=== PATIENT | female | born 1990 | race Caucasian/White ===

== ENCOUNTER 2016-05-13 03:03 | Emergency (ER) | payer SELFPAY ==
[~2016-05-13] VITALS: Ht 152.4 cm; Wt 70.5 kg
[~2016-05-13 03:03] MED LIST: BACTDS PO; CEPH-443 PO; IBUP-1542 PO; METO10TA92 PO; NITR-58 PO
[2016-05-13 03:11] VITALS: Ht 152.4 cm; Wt 70.5 kg
== END 2016-05-13 04:17 | disposition left against medical advice (07) ==
LOC: FTE 03:03 → E/R 04:17
DX: Z53.21 Procedure and treatment not carried out due to patient leaving prior to being seen by health care provider (principal)

== ENCOUNTER 2016-10-02 10:30 | Emergency (ER) | payer BC ==
[~2016-10-02] VITALS: Ht 157.5 cm; Wt 64.5 kg
[2016-10-02 10:36] VITALS: Ht 157.5 cm; Wt 64.5 kg
[2016-10-02] MEDS ORDERED: ONDANSETRON (ODT) 4 MG TAB ODT STA (11:52)
[2016-10-02 12:09] LABS: URINE BLOOD (Dip) POC Negative (NEGATIVE)
[2016-10-02 12:38] LABS: ADD UMIC YES; UR ASCORBIC ACID NEGATIVE (NEGATIVE); UR BACTERIA FEW /HPF (NONE SEEN); UR BILIRUBIN (Dip) NEGATIVE (NEGATIVE); UR BLOOD (Dip) NEGATIVE (NEGATIVE); UR CLARITY CLOUDY (CLEAR); UR COLOR AMBER (YELLOW); UR GLUCOSE (Dip) NEGATIVE (NEGATIVE); UR KETONES (Dip) 2+ mg/dL (NEGATIVE); UR LEUKOCYTE ESTERASE (Dip) 3+ Leu/ul (NEGATIVE); UR MUCUS MANY /HPF (NONE SEEN); UR NITRITE (Dip) NEGATIVE (NEGATIVE); UR RBC 6 /HPF (0-5); UR SPECIFIC GRAVITY (Dip) 1.032 (1.003-1.030); UR SQUAMOUS EPITHELIAL CELL MANY /HPF (FEW); UR TOTAL PROTEIN (Dip) 2+ mg/dl (NEGATIVE); UR UROBILINOGEN (Dip) 2+ mg/dL (NEGATIVE); UR WBC CLUMPS FEW /HPF (NONE SEEN)
--- NOTE | 2016-10-02 13:01 | ERD ---
ER Documentation Chief Complaint Date/Time DATE: 10/02/16 TIME: 13:00 Chief Complaint Pt vomiting X 2 days, unable to keep anything down. HPI 26-year-old female previously healthy G 2 P1 Ab1 8 months presenting with nausea and vomiting. Her symptoms have been going on for the past 2-3 days. She has had a few episodes of nonbloody and nonbilious vomiting, but her biggest complaint is just consistent nausea and difficulty eating or drinking secondary to her symptoms. She denies any associated abdominal pain, dysuria, fever, chills, headache, focal weakness or numbness. She suspects she might be as she has missed her period for the past 2 months. She has no vaginal bleeding, dyspareunia, or pelvic pain. ROS All systems reviewed and are negative except as per history of present illness. Medications Home Meds Active Scripts Metoclopramide* (Reglan*) 10 Mg Tablet, 10 MG PO Q6 Y for NAUSEA AND/OR VOMITING , #10 TAB Prov:EZEQUIEL GARCIA MD 10/02/16 Cephalexin* (Keflex*) 500 Mg Capsule, 500 MG PO QID for 7 Days, CAP Prov:ROSARIO BERNAL CERTIFIED ATHLETIC TRAINER 02/18/16 Ibuprofen* (Motrin*) 600 Mg Tab, 600 MG PO Q6H Y for PAIN AND OR ELEVATED TEMP, #30 TAB Prov:ROSARIO BERNAL. CERTIFIED ATHLETIC TRAINER 02/18/16 Nitrofurantoin Monohyd Macrocr* (Macrobid*) 100 Mg Capsr, 100 MG PO BID for 7 Days, CAP Prov:NORTH DAI PA-C 05/31/15 Metoclopramide* (Reglan*) 10 Mg Tablet, 10 MG PO Q6 Y for NAUSEA AND/OR VOMITING , #10 TAB Prov:NORTH DAI PA-C 05/31/15 Ibuprofen* (Motrin*) 600 Mg Tab, 600 MG PO Q6, #20 TAB Prov:NORTH DAI PA-C 11/05/14 Cephalexin* (Keflex*) 500 Mg Capsule, 500 MG PO QID for 7 Days, CAP Prov:NORTH DAI PA-C 11/05/14 Sulfamethoxazole-Trimethoprim* (Bactrim* DS) 800-160 Mg Tab, 1 TAB PO BID for 10 Days, TAB Prov:NORTH DAI PA-C 11/05/14 Reported Medications [None] No Conflict Check 08/01/09 Allergies Allergies: Coded Allergies: No Known Allergies (Verified Allergy, Mild, 10/02/16) Uncoded Allergies: NONE (Allergy, Mild, 08/01/09) PMhx/Soc Medical and Surgical Hx: pt denies Medical Hx, pt denies Surgical Hx History of Surgery: No Anesthesia Reaction: No Hx Neurological Disorder: No Hx Respiratory Disorders: Yes (Asthma) Hx Cardiac Disorders: No Hx Psychiatric Problems: No Hx Miscellaneous Medical Probl: No Hx Alcohol Use: No Hx Substance Use: No Hx Tobacco Use: No Smoking Status: Never smoker FmHx Family History: No diabetes Physical Exam Vitals Vital Signs Date Time Temp Pulse Resp B/P Pulse Ox O2 Delivery O2 Flow Rate FiO2 10/02/16 10:36 98.5 80 16 126/71 98 Physical Exam Const: Well-appearing, no apparent distress, nontoxic Head: Atraumatic Eyes: Normal Conjunctiva ENT: Normal External Ears, Nose and Mouth. Neck: Full range of motion..~ No meningismus. Resp: Clear to auscultation bilaterally Cardio: Regular rate and rhythm, no murmurs Abd: Soft, non tender, non distended. Normal bowel sounds Skin: No petechiae or rashes Back: No midline or flank tenderness Ext: No cyanosis, or edema Neur: Awake and alert, no facial asymmetry, strength and sensations intact, gait normal Psych: Normal Mood and Affect Results 24 hrs Laboratory Tests Test 10/02/16 12:00 10/02/16 12:14 Urine Color VALERIANO Urine Clarity CLOUDY Urine pH 5.0 Urine Specific Castile 1.032 Urine Ketones 2+mg/dL Urine Nitrite NEGATIVEmg/dL Urine Bilirubin NEGATIVEmg/dL Urine Urobilinogen 2+mg/dL Urine Leukocyte Esterase 3+Kristina/ul Urine Microscopic RBC 6/HPF Urine Microscopic WBC 27/HPF Urine Squamous Epithelial Cells MANY/HPF Urine Bacteria FEW/HPF Urine Mucus MANY/HPF Urine Hemoglobin NEGATIVEmg/dL Urine Glucose NEGATIVEmg/dL Urine Total Protein 2+mg/dl Bedside Urine pH (LAB) 6.0 Bedside Urine Protein (LAB) 2+ Bedside Urine Glucose (UA) Negative Bedside Urine Ketones (LAB) 2+ Bedside Urine Blood Negative Bedside Urine Nitrite (LAB) Negative Bedside Urine Leukocyte Esterase (L 1+ Current Medications Medications (Trade) Dose Ordered Sig/Jaimie Route PRN Reason Start Time Stop Time Status Last Admin Dose Admin Ondansetron HCl (Zofran Odt) 4 mg ONCE STAT ODT 10/02/16 11:52 10/02/16 11:56 DC 10/02/16 12:01 Procedures/MDM Labs Urinalysis shows leukocytes with a few WBCs, however the patient is asymptomatic Urine positive Urine culture pending Patient is presenting with acute nausea and vomiting. She is hemodynamically stable with no evidence of acute surgical abdomen. I have a low suspicion for ectopic , PID, ovarian torsion, or tubo-ovarian abscess. Urinalysis showed evidence of possible infection but the patient is asymptomatic. I do not think she needs empiric treatment at this time. Urine culture was sent and the patient will be called with the results. She can be prescribed antibiotics if the urine culture is positive. Patient was treated with Zofran for her nausea. After this she tolerated fluids and Jell-O without any further episodes of vomiting. I think the patient is stable for discharge at this time. A prescription for Reglan was given. Follow-up with PMD and OB was recommended. Return precautions were discussed. She was advised to return for any worsening symptoms Departure Diagnosis: Primary Impression: Nausea and vomiting Vomiting type: unspecified Vomiting Intractability: non-intractable Qualified Code: R11.2 - Non-intractable vomiting with nausea, unspecified vomiting type Additional Impression: Weeks of gestation: unspecified Qualified Code: Z33.1 - , unspecified gestational age Condition: Stable EZEQUIEL GARCIA MD Oct 02, 2016 13:00
[2016-10-02] MEDS ORDERED: METO10TA92 PO (13:07)
== END 2016-10-02 13:14 | disposition home or self-care (01) ==
LOC: FTE 10:30
DX: R11.2 Nausea with vomiting, unspecified (principal); J45.909 Unspecified asthma, uncomplicated; Z33.1 Pregnant state, incidental
CPT/HCPCS: 81001; 87086; Z7502; Z7610; 81003; 99283

== ENCOUNTER 2016-11-13 18:28 | Emergency (ER) | payer BC ==
[~2016-11-13] VITALS: Ht 157.5 cm; Wt 59.0 kg
[2016-11-13 18:35] VITALS: Ht 157.5 cm; Wt 59.0 kg
[2016-11-13] MEDS ORDERED: ONDANSETRON 4 MG INJ IV STA (19:03)
[2016-11-13] MEDS ORDERED: SOD CHLORIDE 0.9% 1,000 ML IV STA (19:03)
[2016-11-13 19:16] LABS: URINE BLOOD (Dip) POC Negative (NEGATIVE)
[2016-11-13 19:41] LABS: BASOPHILS % 0.4 % (0.0-2.0); EOSINOPHILS % 0.3 % (0.0-7.0); HEMATOCRIT 37.3 % (37.0-47.0); HEMOGLOBIN 12.5 g/dl (12.0-16.0); LYMPHOCYTES # 2.5 10^3/ul (0.8-2.9); LYMPHOCYTES % 24.4 % (15.0-51.0); MEAN CORPUSCULAR HEMOGLOBIN 29.7 pg (29.0-33.0); MEAN CORPUSCULAR HGB CONC 33.5 g/dl (32.0-37.0); MEAN CORPUSCULAR VOLUME 88.6 fl (82.0-101.0); MEAN PLATELET VOLUME 12.3 fl (7.4-10.4); MONOCYTE # 0.7 10^3/ul (0.3-0.9); MONOCYTES % 6.5 % (0.0-11.0); PLATELET COUNT 259 10^3/UL (140-415); RED BLOOD COUNT 4.21 10^6/ul (4.20-5.40); RED CELL DISTRIBUTION WIDTH 13.2 % (11.5-14.5); WHITE BLOOD COUNT 10.2 10^3/ul (4.8-10.8)
[2016-11-13 19:55] LABS: ALBUMIN 4.2 g/dl (3.3-4.9); ALBUMIN/GLOBULIN RATIO 1.13; BILIRUBIN,INDIRECT 0.4 mg/dl (0-1.1); BILIRUBIN,TOTAL 0.4 mg/dl (0.2-1.3); CALCIUM 9.7 mg/dl (8.4-10.2); CREATININE 0.55 mg/dl (0.44-1.00); POTASSIUM 3.8 mmol/L (3.5-5.1); TOTAL PROTEIN 7.9 g/dl (6.1-8.1)
[2016-11-13] MEDS ORDERED: CEFTRIAXONE 1 GM/50 ML (PMX) 50 ML IVPB ONE (20:00)
[2016-11-13] MEDS ORDERED: CEPH500C PO (20:07)
[2016-11-13] MEDS ORDERED: ONDA4TAB14 PO (20:07)
--- NOTE | 2016-11-13 20:37 | ERA ---
ER Documentation Chief Complaint Date/Time DATE: 11/13/16 Chief Complaint 12 weeks . increased n/v. HPI The patient is a 76-year-old female, presenting to the ER because of nausea, vomiting, diarrhea for the last 2 days. She is about 3 months , denies vaginal bleeding, vaginal discharge, hematemesis, hematochezia. He denies fever , neck pain, chest pain, dysuria. Is 2 para 1, does not smoke nor drink Past medical history: Asthma Past surgical history: None ROS All systems reviewed and are negative except as per history of present illness. Medications Home Meds Active Scripts Cephalexin* (Cephalexin*) 500 Mg Capsule, 500 MG PO Q6, #28 CAP Prov:GENNA WALKER MD 11/13/16 Ondansetron (Ondansetron Odt) 4 Mg Tab.rapdis, 4 MG PO Q6H Y for NAUSEA AND/OR VOMITING, #10 TAB Prov:GENNA WALKER MD 11/13/16 Metoclopramide* (Reglan*) 10 Mg Tablet, 10 MG PO Q6 Y for NAUSEA AND/OR VOMITING , #10 TAB Prov:EZEQUIEL GARCIA MD 10/02/16 Cephalexin* (Keflex*) 500 Mg Capsule, 500 MG PO QID for 7 Days, CAP Prov:ROSARIO BERNAL NP 02/18/16 Ibuprofen* (Motrin*) 600 Mg Tab, 600 MG PO Q6H Y for PAIN AND OR ELEVATED TEMP, #30 TAB Prov:ROSARIO BERNAL NP 02/18/16 Nitrofurantoin Monohyd Macrocr* (Macrobid*) 100 Mg Capsr, 100 MG PO BID for 7 Days, CAP Prov:NORTH DAI PA-C 05/31/15 Metoclopramide* (Reglan*) 10 Mg Tablet, 10 MG PO Q6 Y for NAUSEA AND/OR VOMITING , #10 TAB Prov:NORTH DAI PA-C 05/31/15 Ibuprofen* (Motrin*) 600 Mg Tab, 600 MG PO Q6, #20 TAB Prov:NORTH DAI PA-C 11/05/14 Cephalexin* (Keflex*) 500 Mg Capsule, 500 MG PO QID for 7 Days, CAP Prov:NORTH DAI PA-C 8/13/15 Sulfamethoxazole-Trimethoprim* (Bactrim* DS) 800-160 Mg Tab, 1 TAB PO BID for 10 Days, TAB Prov:NORTH DAI PA-C 11/05/14 Reported Medications [None] No Conflict Check 08/01/09 Allergies Allergies: Coded Allergies: No Known Allergies (Verified Allergy, Mild, 11/13/16) PMhx/Soc History of Surgery: No Anesthesia Reaction: No Hx Neurological Disorder: No Hx Respiratory Disorders: Yes (Asthma) Hx Cardiac Disorders: No Hx Psychiatric Problems: No Hx Miscellaneous Medical Probl: No Hx Alcohol Use: No Hx Substance Use: No Hx Tobacco Use: No Smoking Status: Never smoker Physical Exam Vitals Vital Signs Date Time Temp Pulse Resp B/P Pulse Ox O2 Delivery O2 Flow Rate FiO2 11/13/16 18:35 98.2 77 18 114/60 99 Physical Exam Const: No acute distress. Head: Atraumatic. Eyes: Normal Conjunctiva. ENT: Normal External Ears, Nose and Mouth. Neck: Full range of motion. No meningismus. Resp: Clear to auscultation bilaterally. Cardio: Regular rate and rhythm. Abd: Soft, non distended, normal bowel sounds, non tender. Skin: No petechiae or rashes. Back: No midline or flank tenderness. Ext: No cyanosis, or edema. Neur: Awake and alert. No focal deficit Psych: Normal Mood and Affect. Result Diagram: 11/13/16192411/13/161924 Results 24 hrs Laboratory Tests Test 11/13/16 19:21 11/13/16 19:25 Bedside Urine pH (LAB) 6.0 Bedside Urine Protein (LAB) 2+ Bedside Urine Glucose (UA) Negative Bedside Urine Ketones (LAB) 1+ Bedside Urine Blood Negative Bedside Urine Nitrite (LAB) Negative Bedside Urine Leukocyte Esterase (L 1+ White Blood Count 10.210^3/ul Red Blood Count 4.2110^6/ul Hemoglobin 12.5g/dl Hematocrit 37.3% Mean Corpuscular Volume 88.6fl Mean Corpuscular Hemoglobin 29.7pg Mean Corpuscular Hemoglobin Concent 33.5g/dl Red Cell Distribution Width 13.2% Platelet Count 22876^3/UL Mean Platelet Volume 12.3fl Neutrophils % 68.0% Lymphocytes % 24.4% Monocytes % 6.5% Eosinophils % 0.3% Basophils % 0.4% Nucleated Red Blood Cells % 0.0/100WBC Neutrophils # (Manual) 710^3/ul Lymphocytes # 2.510^3/ul Monocytes # 0.710^3/ul Eosinophils # 0.010^3/ul Basophils # 0.010^3/ul Nucleated Red Blood Cells # 0.010^3/ul Sodium Level 139mmol/L Potassium Level 3.8mmol/L Chloride Level 100mmol/L Carbon Dioxide Level 22mmol/L Anion Gap 21 Blood Urea Nitrogen 8mg/dl Creatinine 0.55mg/dl Glucose Level 84mg/dl Calcium Level 9.7mg/dl Total Bilirubin 0.4mg/dl Direct Bilirubin 0.00mg/dl Indirect Bilirubin 0.4mg/dl Aspartate Amino Transf (AST/SGOT) 17IU/L Alanine Aminotransferase (ALT/SGPT) 23IU/L Alkaline Phosphatase 66IU/L Total Protein 7.9g/dl Albumin 4.2g/dl Globulin 3.70g/dl Albumin/Globulin Ratio 1.13 Lipase 139U/L Current Medications Medications (Trade) Dose Ordered Sig/Jaimie Route PRN Reason Start Time Stop Time Status Last Admin Dose Admin Sodium Chloride (NS) 1,000 ml @ 1,000 mls/hr Q1H STAT IV 11/13/16 19:03 11/13/16 20:02 DC 11/13/16 19:18 Ondansetron HCl 4 mg 4 mg ONCE STAT IV 11/13/16 19:03 11/13/16 19:05 DC 11/13/16 19:23 Ceftriaxone Sodium (Rocephin) 50 ml @ 100 mls/hr ONCE ONCE IVPB 11/13/16 20:00 11/13/16 20:29 DC 11/13/16 20:24 Procedures/MDM MEDICAL MAKING DECISION: The patient is a 26-year-old female, presenting with acute hyperemesis gravidarum, acute cystitis, acute dehydration. She was treated with 1 L normal saline for acute dehydration, Zofran 4 mg for nausea, Rocephin 1 g for acute cystitis with good response. The differential diagnoses considered include but are not limited to cholelithiasis, cholecystitis, cystitis, pancreatitis, hepatitis, gastritis, peptic ulcer disease, gastric ulcer, appendicitis, diverticulitis, cholangitis, choledocholithiasis, partial small bowel obstruction. Departure Diagnosis: Primary Impression: Hyperemesis gravidarum Additional Impressions: UTI (urinary tract infection) Dehydration Condition: Good Patient Instructions: Understanding Urinary Tract Infections (UTIs), Hyperemesis Gravidarum Additional Instructions: Call your primary care doctor TOMORROW for an appointment during the next 1-2 days.See the doctor sooner or return here if your condition worsens before your appointment time. She was discharged with Claudia CHEN and GENNA Bartholomew MD Nov 13, 2016 20:36
== END 2016-11-13 20:55 | disposition home or self-care (01) ==
LOC: FTE 18:28
DX: O21.0 Mild hyperemesis gravidarum (principal); O23.41 Unspecified infection of urinary tract in pregnancy, first trimester; E86.0 Dehydration; O99.281 Endocrine, nutritional and metabolic diseases complicating pregnancy, first trimester; J45.909 Unspecified asthma, uncomplicated; O99.511 Diseases of the respiratory system complicating pregnancy, first trimester; Z3A.12 12 weeks gestation of pregnancy
CPT/HCPCS: 36415; 80053; 81003; 83690; 85025; 87086; 96361; 96365; 96375; J0696; J2405; J7030; Z7502